=== PATIENT | female | born 1990 | race American Indian/Alaskan Native ===

== ENCOUNTER 2017-05-04 13:02 | Inpatient (IN) | payer MEDICAID ==
[2017-05-04] MEDS ORDERED: MINERAL OIL PO PRN (13:30)
[2017-05-04] MEDS ORDERED: BRETHINE IVP PRN (13:30)
[2017-05-04] MEDS ORDERED: BRETHINE SUB-Q PRN (13:30)
[2017-05-04] MEDS ORDERED: XYLOCAINE 2% INFILTRATI ONE (13:30)
[2017-05-04] MEDS ORDERED: ePHEDrine SULFATE IV PRN ×2 (13:30→19:48)
--- NOTE | 2017-05-04 13:30 | History and Physical Report ---
History of Present Illness Date of examination: 05/04/17 Date of admission: 05/04/17 13:02 Chief complaint: Non reassuring NST in the office, sent over for induction of labor at 40.1 weeks History of present illness: 26 y/o , set of twins now 40.1 weeks with care at [facility] since 18 weeks gestation. 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, gonorrhea, herpes Family/Genetic History: none Social history: no significant social history - Obstetrical History Expected Date of Delivery: 05/03/17 Actual Gestation: 40 Week(s) 1 Day(s) : 5 Para: 5 (twins) Medications and Allergies Allergies Allergy/AdvReac Type Severity Reaction Status Date / Time latex Allergy Severe Hives Verified 05/04/17 13:46 Home Medications Medication Instructions Recorded Confirmed Last Taken Type Vit#96/Ferrous Fum/FA 1 each PO QDAY 10/06/14 05/04/17 11/01/14 History [ Tablet] 1 valACYclovir [Valtrex] 1 tab PO DAILY 10/06/14 05/04/17 05/03/17 History Potassium Chloride 20 meq PO QDAY #3 packet 02/16/16 05/04/17 Unknown Rx traMADol [Ultram 50 MG tab] 50 mg PO Q6HR PRN #20 tablet 02/16/16 05/04/17 Unknown Rx Nitrofurantoin [place]/M-Cryst 100 mg PO Q12HR #14 capsule 11/15/16 05/04/17 Unknown Rx [Macrobid CAP] Ondansetron [Zofran TAB] 4 mg PO Q8HR PRN #6 tablet 11/15/16 05/04/17 Unknown Rx Review of Systems All systems: negative - Vital Signs Vital signs: Vital Signs Pulse BP 88 137/73 05/04/17 13:21 05/04/17 13:21 Temp Pulse Resp BP Pulse Ox 103 H 137/73 99 05/04/17 13:27 05/04/17 13:21 05/04/17 13:27 - Physical Exam Breasts: Positive: deferred Cardiovascular: Regular rate Lungs: Positive: Clear to auscultation Abdomen: Positive: soft Vulva: both: normal Vagina: Positive: normal moisture Uterus: Positive: enlarged Adnexa: both: normal Anus/Rectum: Positive: normal perianal skin Extremities: Positive: normal Deep Tendon Reflex Grade: Normal +2 - Obstetrical FHR: category 1 Uterine Contraction Monitor Mode: External Cervical Dilatation: 6 (arom clear fluid) Cervical Effacement Percentage: 70 station: -1 Uterine Contraction Frequency (min): q 3 Uterine Contraction Pattern: Regular Uterine Contraction Intensity: Strong/Firm Results Result Diagrams: 05/04/17 13:50 All other labs normal. Assessment and Plan A: 40.1 weeks gestation with non reassuring NST in the office for induction of labor P; Pitocin induction Expect
[2017-05-04] MEDS ORDERED: PITOCin/NS 30 UNIT/500ML 30 UNITS/500 ML BAG IV SCH (14:00)
[2017-05-04 14:11] LABS: Hematocrit 31.2 % (30.3-42.9); Mean Corpuscular HGB Conc 32 % (30-34); Mean Corpuscular Hemoglobin 26 pg (28-32); Mean Corpuscular Volume 82 fl (79-97); Platelet Count 200 K/mm3 (140-440); Red Blood Count 3.81 M/mm3 (3.65-5.03); Red Cell Distribution Width 14.6 % (13.2-15.2); White Blood Count 12.2 K/mm3 (4.5-11.0)
[2017-05-04] MEDS: PITOCin/NS 30 UNIT/500ML 30 UNITS/500 ML BAG IV SCH ×5 (14:28→17:44)
[2017-05-04] MEDS: LACTATED RINGERS 1,000 ML IV SCH ×3 (14:29→18:38)
[2017-05-04] MEDS ORDERED: POLYCILLIN/NS 2 GM/100 ML 2 GM/100 ML BAG IV ONE (15:00)
[2017-05-04] MEDS: SUBLIMAZE IV PRN ×2 (15:42→17:44)
[2017-05-04] MEDS ORDERED: ePHEDrine SULFATE ONE (18:38)
[2017-05-04] MEDS ORDERED: POLYCILLIN/NS 1 GM/50 ML 1 GM/50 ML BAG IV ONE (19:00)
[2017-05-04] MEDS ORDERED: NARCAN 2 MG/2 ML IV PRN (19:48)
--- NOTE | 2017-05-04 19:48 | Anesthesia Consultation ---
Anesthesia Consult and Med Hx Date of service: 05/04/17 - Airway Anesthetic Teeth Evaluation: Good ROM Head & Neck: Adequate Mental/Hyoid Distance: Adequate Mallampati Class: Class II Intubation Access Assessment: Probably Good - Pulmonary Exam CTA: Yes - Cardiac Exam Cardiac Exam: RRR - Pre-Operative Health Status ASA Pre-Surgery Classification: ASA2 Proposed Anesthetic Plan: Epidural, Spinal - Pulmonary Hx Asthma: No COPD: No Hx Pneumonia: No - Cardiovascular System Hx Hypertension: No - Central Nervous System Hx Seizures: No Hx Psychiatric Problems: No - Endocrine Hx Renal Disease: No Hx End Stage Renal Disease: No Hx Hypothyroidism: No Hx Hyperthyroidism: No - Hematic Hx Anemia: Yes Hx Sickle Cell Disease: No - Other Systems Hx Alcohol Use: No - Additional Comments Anesthesia Medical History Comments: +IUP
[2017-05-04] MEDS ORDERED: fentaNYL-BUPIV 2 MCG/ML-0.125% 200 MCG/100 ML BAG EPIDURAL SCH (20:00)
[2017-05-04] MEDS ORDERED: CYTOTEC ONE (20:55)
[2017-05-04] MEDS ORDERED: CYTOTEC PR ONE (20:56)
[2017-05-04] MEDS ORDERED: TUCKS PAD TP PRN (21:04)
[2017-05-04] MEDS ORDERED: DULCOLAX PR PRN (21:04)
[2017-05-04] MEDS ORDERED: TYLENOL PO PRN (21:04)
[2017-05-04] MEDS ORDERED: PHENERGAN PO PRN (21:04)
[2017-05-04] MEDS ORDERED: LANSINOH TP PRN (21:04)
[2017-05-04] MEDS ORDERED: ZOFRAN IV PRN (21:04)
[2017-05-04] MEDS ORDERED: BENADRYL PO PRN (21:04)
--- NOTE | 2017-05-04 21:12 | Procedure Note ---
OB Delivery Note - Delivery Date of Delivery: 05/04/17 Surgeon: ALVARO FARLEY Estimated blood loss: 300cc - Vaginal Delivery presentation: vertex Delivery position: OA Delivery induction: oxytocin Delivery augmentation: rupture of membranes Delivery monitor: external FHT, external uterine Route of delivery: Delivery placenta: spontaneous Episiotomy: none Delivery laceration: none Anesthesia: intravenous, epidural Delivery comments: of a viable male 7# 6oz @ 2044 on 05/04/2017 over intact perineum. Placenta delivered 3 VCI. EBL 300 cc. Cytotec 600mcg [place] given. FF @U-2, lochia small. Mother and baby doing well. - A at 1 minute: 8 at 5 minutes: 9 Gender: Male (7# 6oz)
[2017-05-04] MEDS: PITOCin/NS 20 UNIT/1000ML DRIP 20 UNITS/1,000 ML BAG IV SCH ×2 (21:23→22:05)
[2017-05-04] MEDS ORDERED: SODIUM CHLORIDE FLUSH SYRINGE 10 ML IV SCH (22:00)
[2017-05-04] MEDS: MOTRIN PO SCH (22:04)
[2017-05-04] MEDS: NORCO 5/325 PO PRN (23:30)
[2017-05-05] MEDS: PITOCin/NS 20 UNIT/1000ML DRIP 20 UNITS/1,000 ML BAG IV SCH (01:09)
[2017-05-05] MEDS: NORCO 5/325 PO PRN ×3 (03:13→14:23)
[2017-05-05] MEDS: MOTRIN PO SCH ×3 (05:26→18:43)
[2017-05-05] MEDS ORDERED: BOOSTRIX IM ONE (06:00)
[2017-05-05] MEDS ORDERED: ALUM-MAG HYDROX-SIMETH 200-200-20MG/5ML PO PRN (09:48)
[2017-05-05 09:53] LABS: Hematocrit 31.2 % (30.3-42.9)
--- NOTE | 2017-05-05 10:09 | Event Note ---
Date: 05/05/17 : Notified about patient with chest pain. Patient seen and examined, sudden onset of sternal pain this a.m. after breakfast. Patient describes pain as pressure like with feeling of shortness of breath, no prior episode of above. She denies headache, scotomata or epigastric pain. Review of chart shows intermittent episodes of elevated blood pressures with range 140s over 80's. On examination, she is lying in bed in no apparent acute distress Vitals are stable at this time w/ sat on RM air 100%. Chest pressure is not reproducible with external exam EKG just obtained with normal sinus rhythm A: Chest pressure -?Heartburn ?ACS ??VTE P: -Cardiac enzymes ordered -H2 nagi administered -If pain worsens or no improvement, consider workup for VTE and hospitalist input
--- NOTE | 2017-05-05 11:15 | Progress Note ---
Assessment and Plan A: PPD #1 C/O chest pain P: EKG WNL, Cardiac enzymes ordered. Continue to observe Subjective - Subjective Date of service: 05/05/17 Principal diagnosis: Interval history: 26 y/o , set of twins now 40.1 weeks with care at [facility] since 18 weeks gestation. HX of HSV2, on suppression.GBS+ Patient reports: other (states that chect still feels funny like her heart is fluttering- EKG was normal) : doing well Objective - Vital Signs Latest vital signs: Vital Signs Temp Pulse Pulse Resp BP BP Pulse Ox 05/05/17 08:30 98.8 F 68 20 144/81 05/05/17 05:26 18 05/05/17 04:20 98.2 F 86 20 136/88 05/05/17 03:13 18 05/04/17 23:30 18 05/04/17 23:10 98.0 F 84 20 146/86 05/04/17 22:25 98.5 F 78 83 18 141/74 99 05/04/17 22:18 83 141/74 05/04/17 22:04 18 05/04/17 22:03 78 135/72 05/04/17 21:18 88 149/88 05/04/17 21:05 98.5 F 88 18 118/58 97 05/04/17 21:03 88 144/69 05/04/17 20:48 95 H 145/87 05/04/17 20:34 117 H 100 05/04/17 20:29 86 100 05/04/17 20:24 83 100 05/04/17 20:19 80 118/58 100 05/04/17 20:14 83 100 05/04/17 20:09 92 H 100 05/04/17 20:04 89 100 05/04/17 19:59 80 131/71 100 05/04/17 19:55 102 H 119/69 05/04/17 19:54 91 H 100 05/04/17 19:50 96 H 116/67 05/04/17 19:49 104 H 100 05/04/17 19:47 99 H 105/59 05/04/17 19:45 80 108/59 05/04/17 19:44 77 100 05/04/17 19:43 81 127/79 06/16/17 19:41 93 H 120/59 0616/17 19:39 90 120/64 100 0616/17 19:37 90 129/66 16/17 19:35 93 H 133/67 0616/17 19:34 86 100 0616/17 19:33 90 129/70 16/17 19:31 82 L 0616/17 19:29 97 H 83 L 16/17 19:24 96 H 100 16/17 19:23 109 H 138/79 16/17 19:19 76 100 0616/17 19:15 98.4 F 81 87 18 128/68 128/68 100 16/17 19:14 87 100 0616/17 18:51 89 118/79 16/17 18:36 81 124/75 16/17 18:21 88 117/69 16/17 18:08 81 98 0616/17 18:06 86 112/67 16/17 18:03 80 99 0616/17 17:58 83 98 0616/17 17:53 87 97 0616/17 17:52 81 117/69 0616/17 17:48 86 98 0616/17 17:45 97.8 F 122/76 16/17 17:43 83 100 0616/17 17:38 86 100 0616/17 17:36 88 122/76 0616/17 17:33 86 99 0616/17 17:28 90 99 0616/17 17:23 83 99 0616/17 17:21 83 118/73 0616/17 17:18 83 99 0616/17 17:13 83 99 0616/17 17:08 92 H 100 0616/17 17:07 89 113/71 0616/17 17:03 83 99 06/16/17 16:58 85 98 06/16/17 16:53 81 99 0616/17 16:52 83 117/68 0616/17 16:48 91 H 99 0616/17 16:43 88 99 06/16/17 16:38 81 99 0616/17 16:36 87 111/65 0616/17 16:33 80 99 06/16/17 16:28 89 98 06/16/17 16:23 86 98 05/04/17 16:21 75 108/62 05/04/17 16:18 77 99 05/04/17 16:13 82 98 05/04/17 16:08 78 98 05/04/17 16:06 76 109/67 05/04/17 16:03 78 98 05/04/17 15:58 71 99 05/04/17 15:53 72 98 05/04/17 15:52 72 127/63 05/04/17 15:48 75 99 05/04/17 15:43 85 100 05/04/17 15:42 18 05/04/17 15:21 80 124/70 05/04/17 15:07 77 123/70 05/04/17 14:51 77 123/73 05/04/17 14:36 81 117/72 05/04/17 14:21 81 124/75 05/04/17 14:06 88 131/65 05/04/17 13:51 83 136/64 05/04/17 13:47 90 99 05/04/17 13:42 92 H 98 05/04/17 13:37 84 99 05/04/17 13:36 86 128/65 05/04/17 13:32 93 H 98 05/04/17 13:31 98.4 F 18 98 05/04/17 13:27 103 H 99 05/04/17 13:22 94 H 98 05/04/17 13:21 88 137/73 Intake and Output 05/04/17 05/05/17 05/05/17 22:59 06:59 14:59 Intake Total 1999 965 360 Output Total 950 1400 Balance 1999 15 -1040 Intake: IV 2000 125 Lactated Ringers 1,000 ml 2000 @ 125 mls/hr IV DIRECT MAGDALENA Rx#:[id number] PITOCin/NS 20 UNIT/1000ML 125 DRIP 20 units In 1,000 ml @ 125 mls/hr IV DIRECT MAGDALENA Rx#:[id number] Oral 840 360 Output: Urine 950 1400 Void 950 1400 Other: Total, Intake Amount 360 120 Total, Output Amount 950 300 # Voids Void 3 Estimated Blood Loss 300 - Exam Breasts: Present: deferred Cardiovascular: Present: Regular rate Lungs: Present: Clear to auscultation Abdomen: Present: soft Vulva: both: normal Uterus: Present: fundal height below umbilicus Extremities: Present: normal Deep Tendon Reflex Grade: Normal +2 - Labs Labs: Abnormal lab results 05/04/17 05/05/17 Range/Units 13:50 09:38 WBC 12.2 H (4.5-11.0) K/mm3 Hgb 10.0 L 10.0 L (10.1-14.3) gm/dl MCH 26 L (28-32) pg
[2017-05-05 13:28] LABS: Creatine Kinase MB 3.1 ng/mL (0.0-4.0)
[2017-05-05 13:29] LABS: Creatine Kinase 129 units/L (30-135)
[2017-05-06] MEDS: MOTRIN PO SCH ×4 (00:22→17:44)
--- NOTE | 2017-05-06 15:04 | Progress Note ---
Assessment and Plan A: PP Day #2 s/p Chest Pain Elevated CK-MB Rel Index (2.4) P: Follow Routine Orders States chest pain has resolved for the most part Consulted Dr. Patel; Recommends repeating CK-MB and Troponin T (orders placed) Desires Sterilization Depo Provera prior to discharge Subjective - Subjective Date of service: 05/06/17 Principal diagnosis: Patient reports: appetite normal, voiding normally, pain well controlled, flatus , ambulating normally : other (Under (Bili) Lights), bottle feeding Objective - Vital Signs Latest vital signs: Vital Signs Temp Pulse Resp BP 05/06/17 09:16 98.7 F 67 16 137/74 05/06/17 00:00 98.0 F 76 20 119/59 05/05/17 16:40 97.9 F 78 18 138/78 Intake and Output 05/05/17 05/06/17 05/06/17 22:59 06:59 14:59 Intake Total 480 360 Balance 480 360 Intake: Oral 480 240 Intake, Free Water 120 Other: Total, Intake Amount 240 240 # Voids Void 1 1 - Exam Breasts: Present: normal Cardiovascular: Present: Regular rate Lungs: Present: Clear to auscultation, Normal air movement Abdomen: Present: normal appearance, soft, normal bowel sounds Uterus: Present: normal, firm, fundal height below umbilicus Extremities: Present: normal
[2017-05-07] MEDS: MOTRIN PO SCH ×3 (00:11→12:10)
--- NOTE | 2017-05-07 06:38 | Progress Note ---
Assessment and Plan PPD# 4 s/p -Chest pain resolved P: -Discharge home -Follow up in clinic -Return [facility] for chest pain or shortness of breath - Patient Problems (1) Normal spontaneous vaginal delivery Current Visit: No Status: Acute (2) Chest pain Current Visit: Yes Status: Resolved Qualifiers: Chest pain type: C Ischemic chest pain type: I Subjective - Subjective Date of service: 05/07/17 Principal diagnosis: Interval history: Patient seen and examined, doing well. Chest pain has resolved, enzymes and EKG negative Patient reports: appetite normal, voiding normally, pain well controlled, flatus , ambulating normally, no dizzy ambulation, no nauseated Objective - Vital Signs Latest vital signs: Vital Signs Temp Pulse Resp BP 05/06/17 23:34 98.0 F 62 18 136/73 05/06/17 16:35 98.6 F 76 16 145/76 05/06/17 09:16 98.7 F 67 16 137/74 Intake and Output 05/06/17 05/06/17 05/07/17 14:59 22:59 06:59 Intake Total 240 360 Balance 240 360 Intake: Oral 240 360 Other: Total, Intake Amount 240 120 # Voids Void 1 1
--- NOTE | 2017-05-07 06:41 | Discharge Summary ---
Providers - Providers Date of Admission: 05/04/17 13:02 Date of discharge: 05/07/17 Attending physician: PHIL TOBIAS MD Primary care physician: PHIL TOBIAS MD Hospitalization Reason for admission: induction of labor Delivery: Episiotomy: none Laceration: none Other procedures: none complications: none Discharge diagnosis: IUP at term delivered, other (Chest pain resolved) Munger baby: male Hospital course: course complicated by chest pain. EKG and cardiac enzymes negative. Chest pain resolved Condition at discharge: Good Disposition: DC-01 TO HOME OR SELFCARE - Discharge Diagnoses (1) Normal spontaneous vaginal delivery Status: Acute (2) Chest pain Status: Resolved Qualifiers: Chest pain type: C Ischemic chest pain type: I Plan - Discharge Medications Prescriptions: Ibuprofen [Motrin 600 MG tab] 600 mg PO Q8H PRN #30 tablet PRN Reason: Pain Multivitamin with Iron [Multivitamins with Iron] 1 each PO DAILY #30 tablet - Provider Discharge Summary Activity: no sex for 6 weeks, no heavy lifting 4 weeks, no strenuous exercise Diet: routine Additional instructions: [] Smoking cessation referral if applicable(refer to patient education folder for contact #) [] Refer to [facility] Booklet Call your doctor immediately for: * Fever > 100.5 * Heavy vaginal bleeding ( >1 pad per hour) * Severe persistent headache * Shortness of breath * Reddened, hot, painful area to leg or breast * Drainage or odor from incision. * Keep incision clean and dry at all times and follow doctor's instructions regarding bathing/showering - Follow up plan Follow up: PHIL LYNNE MD [Primary Care Provider] - 7 Days
[2017-05-07] MEDS: NORCO 5/325 PO PRN (08:20)
[2017-05-07 17:25] VITALS: BP 137/70
== END 2017-05-07 18:00 | disposition home or self-care (01) | DRG 774 ==
LOC: LD 13:02 → OB 22:54
PROVIDERS: ADMIT Obstetrics & Gynecology; ATTEND Obstetrics & Gynecology
PROC: 10E0XZZ Delivery of Products of Conception, External Approach (ICD-10-PCS; principal; 2017-05-04)
PROC: 00HU33Z Insertion of Infusion Device into Spinal Canal, Percutaneous Approach (ICD-10-PCS; 2017-05-04)
PROC: 3E0S3CZ (ICD-10-PCS; 2017-05-04)
PROC: 3E033VJ Introduction of Other Hormone into Peripheral Vein, Percutaneous Approach (ICD-10-PCS; 2017-05-04)
DX: O76 Abnormality in fetal heart rate and rhythm complicating labor and delivery (principal); O90.89 Other complications of the puerperium, not elsewhere classified; Z3A.40 40 weeks gestation of pregnancy; Z37.0 Single live birth; Z91.040 Latex allergy status; O99.824 Streptococcus B carrier state complicating childbirth; R07.9 Chest pain, unspecified
CPT/HCPCS: 36415; 82550; 82553; 84484; 85014; 85018; 85027; 86850; 86900; 86901; 93005; 93010; J0290; J2590; J3010; J7120

== ENCOUNTER 2022-07-08 07:50 | Emergency (ER) | payer SELFPAY ==
[2022-07-08 08:10] VITALS: BP 163/96
== END 2022-07-08 09:51 | disposition left against medical advice (07) ==
LOC: ED 07:50
DX: R51.9 Headache, unspecified (principal); Z53.21 Procedure and treatment not carried out due to patient leaving prior to being seen by health care provider